=== PATIENT | female | born 1970 | race Caucasian/White ===

== ENCOUNTER 2016-12-16 15:32 | Outpatient (CLI) | payer OTHER ==
--- NOTE | 2016-12-16 16:33 | Mammography Report ---
BILATERAL MAMMOGRAM: FINDINGS: The breast tissue is heterogeneously dense, which could obscure detection of small masses (approximately 50%-75% glandular). No mass, distortion, suspicious calcification, or skin change is seen. No significant change compared to prior exam in December 2015. CAD was utilized. IMPRESSION: Negative mammogram. There is no mammographic evidence of malignancy. RECOMMENDATION: Follow-up per ACS guidelines. BI-RADS CATEGORY: 1 = Negative ACR BI-RADS MAMMOGRAPHIC CODES: 0 = Needs additional imaging evaluation; 1 = Negative; 2 = Benign; 3 = Probably benign; 4 = Suspicious; 5 = Malignant; 6 = Known biopsy-proven malignancy COMMENT: 1. Dense breast tissue, i.e., adenosis, fibrocystic changes, etc., may obscure an underlying neoplasm. 2. Approximately 10% of cancers are not detected with mammography. 3. A negative mammography report should not delay biopsy if a clinically suspicious mass is present. COMMENT: Patient follow-up letters are generated in [employer].
== END 2016-12-16 15:33 | disposition home or self-care (01) ==
LOC: SPVWC 15:32
PROVIDERS: ATTEND Specialist
DX: Z12.31 Encounter for screening mammogram for malignant neoplasm of breast (principal)
CPT/HCPCS: 77067; G0202

== ENCOUNTER 2017-11-11 15:37 | Outpatient (CLI) | payer OTHER ==
--- NOTE | 2017-11-11 16:33 | Mammography Report ---
Right mammogram and right breast ultrasound: Patient presents with her physician feeling a mass in her breast. The patient does not necessarily feel the mass but identifies the location where the doctor identified and a marker is placed over this area in the upper outer breast. There is a language barrier. Routine views are obtained in addition to spot compression imaging over the area of concern. The patient has a heterogeneously dense breast pattern. There is no focal mass and no architectural distortion identified in any portion of the breast and specifically in the area of the marker. Benign calcifications are noted. Compared to her prior examination in December of 2016 is no significant change. Ultrasound over the area of concern at 10:00 demonstrates a relatively dense fibrocystic appearing pattern with a focal area having a somewhat rounded configuration and probably corresponding to the palpable finding. Impression: No suspicious mammographic or ultrasound findings. Ultrasound findings most likely represent fibrocystic change. Recommendation: Clinical followup. Any additional evaluation should be based on your concern. Otherwise, annual mammogram followup. BI-RADS CATEGORY: 2 = Benign ACR BI-RADS MAMMOGRAPHIC CODES: 0 = Needs additional imaging evaluation; 1 = Negative; 2 = Benign; 3 = Probably benign; 4 = Suspicious; 5 = Malignant; 6 = Known biopsy-proven malignancy COMMENT: 1. Dense breast tissue, i.e., adenosis, fibrocystic changes, etc., may obscure an underlying neoplasm. 2. Approximately 10% of cancers are not detected with mammography. 3. A negative mammography report should not delay biopsy if a clinically suspicious mass is present. The
== END 2017-11-11 15:38 | disposition home or self-care (01) ==
LOC: SPVWC 15:37
PROVIDERS: ATTEND Obstetrics & Gynecology
DX: N63.11 Unspecified lump in the right breast, upper outer quadrant (principal)

== ENCOUNTER 2018-10-08 18:36 | Emergency (ER) | payer OTHER ==
--- NOTE | 2018-10-08 18:46 | Emergency Department Report ---
Blank Doc - Documentation Documentation: This is a 48-year-old female that presents with uncontrolled hyperglyecmia with body aches. This initial assessment/diagnostic orders/clinical plan/treatment(s) is/are subject to change based on patient's health status, clinical progression and re- assessment by fellow clinical providers in the ED. Further treatment and workup at subsequent clinical providers discretion. Patient/guardians urged not to elope from the ED as their condition may be serious if not clinically assessed and managed. Initial orders include: 1- Patient sent to MAIN ED for further evaluation and treatment 2- labs 3- UA
[2018-10-08 19:09] LABS: Eosinophils % (Auto) 0.1 % (0.0-4.3); Hematocrit 39.6 % (30.3-42.9); Hemoglobin 13.2 gm/dl (10.1-14.3); Lymphocytes # (Auto) 1.1 K/mm3 (1.2-5.4); Lymphocytes % (Auto) 20.2 % (13.4-35.0); Mean Corpuscular HGB Conc 33 % (30-34); Mean Corpuscular Volume 91 fl (79-97); Monocytes # (Auto) 0.3 K/mm3 (0.0-0.8); Platelet Count 235 K/mm3 (140-440); Red Blood Count 4.35 M/mm3 (3.65-5.03); Red Cell Distribution Width 13.4 % (13.2-15.2)
[2018-10-08 19:29] LABS: BUN/Creatinine Ratio 32; Blood Urea Nitrogen 16 mg/dL (7-17); Calcium 9.7 mg/dL (8.4-10.2); Hemolysis Index 9
[2018-10-08] MEDS ORDERED: NACL 0.9% 1000 ML 1,000 ML IV ONE (20:00)
[2018-10-08] MEDS ORDERED: HumuLIN R IV ONE (20:00)
--- NOTE | 2018-10-08 20:15 | Emergency Department Report ---
HPI - General Chief Complaint: Hyperglycemia Time Seen by Provider: 10/08/18 18:45 - HPI HPI: 48-year-old female presents to the emergency department with a complaint of elevated blood sugar. The patient has a history of diabetes on both pills and insulin. She takes metformin 500 mg twice daily and some type of insulin at night at 40 units. The patient's primary care physician is Dr. Joseph Francisco. The patient says that she checks her sugar twice daily and found to be very elevated prior to arrival, about 700. At the time she had some dizziness or some type of mild headache but that has since resolved. The patient says that she is compliant with her medication and also says that she keeps a reasonable diet. She also has some increased thirst but denies any increased urination. She denies any other past medical history. No recent travel or sick contacts at home. The patient does not speak any [place]an, but nurse Kruse was able to provide translation. ED Past Medical Hx - Past Medical History Hx Diabetes: Yes - Surgical History Additional Surgical History: - Social History Smoking Status: Never Smoker Substance Use Type: None - Medications Home Medications: Home Medications Medication Instructions Recorded Confirmed Last Taken Type Acetaminophen/Codeine [Tylenol #3] 1 tab PO Q6H PRN #12 tab 10/09/14 Unknown Rx metFORMIN [Glucophage] 500 mg PO BID #120 tablet 10/09/14 Unknown Rx ED Review of Systems ROS: Stated complaint: HBS/700 Other details as noted in HPI Comment: All other systems reviewed and negative Constitutional: denies: chills, fever Eyes: denies: eye pain, vision change ENT: denies: ear pain, throat pain Respiratory: denies: cough, shortness of breath Cardiovascular: denies: chest pain, palpitations Endocrine: increased thirst. denies: increased urine Gastrointestinal: denies: abdominal pain, vomiting Genitourinary: denies: dysuria, frequency Musculoskeletal: denies: back pain, arthralgia Skin: denies: rash, lesions Neurological: denies: headache, weakness Physical Exam - Physical Exam Vital Signs: Vital Signs 10/08/18 18:42 Temperature 97.6 F Pulse Rate 84 Respiratory 19 Rate Blood Pressure 135/62 [Left] O2 Sat by Pulse 99 Oximetry Physical Exam: GENERAL: The patient is well-developed well-nourished. HENT: Normocephalic. Atraumatic. Patient has moist mucous membranes. EYES: Extraocular motions are intact. NECK: Supple. Trachea is midline. CHEST/LUNGS: Clear to auscultation. There is no respiratory distress noted. HEART/CARDIOVASCULAR: Regular. There is no tachycardia. There is no murmur. ABDOMEN: Abdomen is soft, nontender. Patient has normal bowel sounds. There is no abdominal distention. SKIN: Skin is warm and dry. NEURO: The patient is awake, alert, and oriented. The patient is cooperative. The patient has no focal neurologic deficits. The patient has normal speech. MUSCULOSKELETAL: There is no tenderness or deformity. There is no evidence of acute injury. ED Course Vital Signs 10/08/18 18:42 Temperature 97.6 F Pulse Rate 84 Respiratory 19 Rate Blood Pressure 135/62 [Left] O2 Sat by Pulse 99 Oximetry ED Medical Decision Making - Lab Data Result diagrams: 10/08/18 18:52 10/08/18 18:52 - Medical Decision Making Patient presents with some hyperglycemia with a maximum of about 450 here in the emergency department. She does not appear to be in diabetic ketoacidosis as there is no venous acidosis or any significant elevation in her anion gap. Patient was given IV fluid and a dose of IV insulin. Upon reevaluation, her blood sugars come down to about 230. Vital signs stable throughout her ED course. The rest of her labs have been unremarkable. We discussed staying away from foods that are high in sugar, carbohydrates and starches and keeping a blo od sugar log. She's been instructed to follow-up with her primary care physician in the next few days, but return to the emergency Department with any worsening of her symptoms or any acute distress. - Differential Diagnosis DKA, HHNK, Diabetic Hyperglycemia Critical Care Time: No Critical care attestation.: If time is entered above; I have spent that time in minutes in the direct care of this critically ill patient, excluding procedure time. ED Disposition Clinical Impression: Hyperglycemia Disposition: DC-01 TO HOME OR SELFCARE Is pt being admited?: No Condition: Stable Instructions: Diabetic Hyperglycemia (ED) Additional Instructions: Please follow-up with your primary care physician in the next few days. Continue with your normal diabetes medications. Keep a blood sugar log. Try and stay away from foods that are high in sugar, carbohydrates and starches. Return to the emergency Department with any worsening of your symptoms or any acute distress. Referrals: Primary Care Provider, Your [Other] - [facility] Time of Disposition: 21:58 Print Language: PERSIAN
[2018-10-08 21:18] LABS: Bilirubin,Urine NEG (Negative); Blood,Urine NEG (Negative); Color,Urine Yellow (Yellow); Mucus,Urine FEW /HPF; Protein,Urine <15 mg/dL mg/dL (Negative); RBC,Urine < 1.0 /HPF (0.0-6.0); Urobilinogen,Urine < 2.0 mg/dL (<2.0)
[2018-10-08 22:02] VITALS: BP 116/68
== END 2018-10-08 22:02 | disposition home or self-care (01) ==
LOC: ED 18:36
DX: E11.65 Type 2 diabetes mellitus with hyperglycemia (principal); Z79.899 Other long term (current) drug therapy
CPT/HCPCS: 36415; 80048; 81001; 82805; 82962; 85025; 96361; 96374; 99283; J7030; J1815

== ENCOUNTER 2019-03-29 08:11 | Outpatient (CLI) | payer OTHER ==
--- NOTE | 2019-03-29 11:57 | Mammography Report ---
DIGITAL SCREENING MAMMOGRAM WITH CAD, 03/29/2019 INDICATION: Routine screening mammography. TECHNIQUE: Digital bilateral 2D mammography was obtained in the craniocaudal and mediolateral obliq ue projections. This examination was interpreted with the benefit of Computer-Aided Detection analysi s. COMPARISON: 12/16/2016 FINDINGS: Breast Density: The breasts are heterogeneously dense, which may obscure small masses. Left asymmetries on both views require additional imaging. No architectural distortion or suspicious calcifications of the left breast. There is no evidence of dominant mass, suspicious calcifications o r architectural distortion in the right breast. IMPRESSION: Left asymmetries requiring additional imaging. Recommend recall for left spot compression views and left breast ultrasound if needed. Follow up recommendation: Special View: Spot Category 0: Incomplete. Needs additional imaging evaluation and/or prior mammograms for comparison. A "normal" or negative report should not discourage follow up or biopsy of a clinically significant f inding. A written summary of these findings will be mailed to the patient. The patient will be entered into a mammography reporting system which will generate a reminder letter for the patient's next appointmen t at the appropriate interval. The [employer] recommends yearly mammograms starting at age 40 and continuing as l kristin as a woman is in good health. Breast MRI is recommended for women with an approximate 20-25% or greater lifetime risk of breast cancer, including women with a strong family history of breast or ova coleen cancer or who have been treated for Hodgkin's disease. Signer Name: Maico Schuler MD Signed: 03/29/2019 11:52 AM Workstation Name: [id number]
== END 2019-03-29 08:12 | disposition home or self-care (01) ==
LOC: SPVWC 08:11
PROVIDERS: ATTEND Internal Medicine
DX: Z12.31 Encounter for screening mammogram for malignant neoplasm of breast (principal)
CPT/HCPCS: 77067

== ENCOUNTER 2019-04-06 14:26 | Outpatient (CLI) | payer OTHER ==
--- NOTE | 2019-04-06 15:30 | Ultrasound Report ---
LEFT DIGITAL DIAGNOSTIC MAMMOGRAM WITH CAD -- 04/06/2019 LEFT LIMITED BREAST ULTRASOUND INDICATION: Follow up evaluation of findings noted previously in the left breast on recent screening mammogram. TECHNIQUE: Digital left mammographic imaging was performed. Spot compression views were obtained. Li mited ultrasound was performed. This examination was interpreted with the benefit of Computer-Aided D etection (CAD) analysis. COMPARISON: 03/29/2019, 12/16/2016. FINDINGS: Breast Density: The breasts are heterogeneously dense, which may obscure small masses. Additional views focused in the left anterior and left superior posterior breast were performed to ev aluate the site of previously noted asymmetries. The left superior posterior breast asymmetry no long er persist on the additional images. There is a questionable inferior anterior breast asymmetry seen on the MLO view. A targeted ultrasound will be performed for further evaluation. Ultrasound Findings: A targeted ultrasound of the left breast from the 4:00 to the 8:00 position, foc used 4 cm from the nipple, was performed to evaluate the site of a suspected mammographic finding. Im ages show two benign-appearing cysts measuring 5 x 4 x 4 mm at the 5:00 position, 4 cm from the nippl e, and 3 x 4 x 3 mm at the 4:00 position, 4 cm from the nipple. These findings could explain the mamm ographic appearance in this region. No evidence of malignancy. IMPRESSION: No evidence of malignancy. Benign-appearing cysts within the left breast at the 4:00 and 5:00 positio n. A routine screening mammogram in one year is recommended. BI-RADS Category 2: Benign. Recommend routine screening mammography in one year A "normal" or negative report should not discourage follow up or biopsy of a clinically significant f inding. A written summary of these findings will be mailed to the patient. The patient will be entered into a mammography reporting system which will generate a reminder letter for the patient's next appointmen t at the appropriate interval. According to the [employer], yearly mammograms are recommended starting at age 40 and continuing as long as a woman is in good health. Breast MRI is recommended for women with an zehra roximately 20-25% or greater lifetime risk of breast cancer, including women with a strong family his tory of breast or ovarian cancer and women who have been treated for Hodgkin's disease. Signer Name: Koby Barksdale MD Signed: 04/06/2019 3:25 PM Workstation Name: [id number]
== END 2019-04-06 14:27 | disposition home or self-care (01) ==
LOC: SPVWC 14:26
PROVIDERS: ATTEND Internal Medicine
DX: R92.8 Other abnormal and inconclusive findings on diagnostic imaging of breast (principal)